=== PATIENT | male | born 1955 | race Caucasian/White ===

== ENCOUNTER 2024-02-04 13:34 | Inpatient (IN) ==
[2024-02-04 13:52] LABS: ABS Basophils 0.1 10^3/uL (0.0-0.1); ABS Eosinophils 0.3 10^3/uL (0.0-0.5); ABS Lymphocytes 1.8 10^3/uL (1.0-4.8); ABS Monocytes 0.8 10^3/uL (0.0-1.1); ABS Neutrophils 8.3 10^3/uL (1.5-7.6); ABS Nucleated RBC 0.01 10^3/ul; Eosinophil % 2.5 %; Hematocrit 46.2 % (38-53); Hemoglobin 15.4 g/dL (13.2-16.3); Mean Corpuscular Hemoglobin 29.5 pg (27-33); Mean Corpuscular Hgb Conc 33.4 g/dL (31-36); Mean Corpuscular Volume 88.4 fL (80-97); Mean Platelet Volume 9.3 fL (7.5-11.2); Nucleated Red Blood Cells % 0.1 %/100WBC (0.0-0.8); Platelet Count 186 10^3/uL (150-450); Red Blood Count 5.23 10^6/uL (4.06-5.63); Red Cell Distribution Width 15.8 % (12-17); White Blood Count 11.2 10^3/uL (3.6-10.2)
[2024-02-04 14:01] LABS: INR 1.31 (0.85-1.14)
[2024-02-04 14:26] LABS: Albumin/Globulin Ratio 1.9 (1-3); Calcium 9.3 mg/dL (8.6-10.3); Creatinine, Serum 0.93 mg/dL (0.67-1.17); Globulin 2.1 g/dL (2-4); Potassium 4.3 mmol/L (3.5-5.0); Total Bilirubin 1.4 mg/dL (0.2-1.0); Total Protein 6.1 g/dL (6.4-8.9); eGFR CKD-EPI 88.3 (>60)
[2024-02-04] MEDS: Morphine 4 MG/ML VIAL (1 ml) IV ONE ×2 (15:16→18:34)
[2024-02-04] MEDS: Ondansetron 4 mg VIAL 2 MG/ML 2 ml VIAL IV ONE (15:26)
[2024-02-04 15:30] LABS: High Sensitivity Troponin 1 Hr 7 pg/mL (<20)
[2024-02-04] MEDS: Iohexol 350 (CONTRAST) 500 ML MDV IV ONE (16:50)
[2024-02-04] MEDS: Acetaminophen IV 1 GM/100ML 1,000 MG/100 ML BAG IV ONE (21:17)
[2024-02-04] MEDS: dilTIAZem 30 MG TAB PO ONE (21:35)
[2024-02-05] MEDS: Morphine 4 MG/ML VIAL (1 ml) IV ONE (01:41)
[2024-02-05] MEDS: Lactated Ringers 1000 ml BAG 1,000 ML IV ONE (05:28)
[2024-02-05 06:45] LABS: Urine Appearance Clear; Urine Bilirubin Negative (Negative); Urine Blood 3+ (Negative); Urine Glucose Negative (Negative); Urine Ketones Negative (Negative); Urine Nitrite Negative (Negative); Urine Protein 1+ (>=30 mg/dL) (Negative); Urine Specific Gravity >1.050 (1.002-1.030); Urine Urobilinogen Negative (Negative)
[2024-02-05 06:47] LABS: Urine Bacteria Absent /HPF (Absent); Urine Red Blood Cell 3+(>10/hpf) /HPF (0-Trace); Urine Squamous Epithelial Cell Present /HPF (Absent); Urine White Blood Cell Trace(0-5/hpf) /HPF (0-Trace)
[2024-02-05 06:51] LABS: Urine Color Amber
[2024-02-05] MEDS: Lactated Ringers 1000 ml BAG 1,000 ML IV SCH ×2 (09:33→11:07)
[2024-02-05] MEDS: dilTIAZem 30 MG TAB PO SCH (09:37)
[2024-02-05] MEDS: Morphine 2 MG/ML SYRINGE IV PRN (09:48)
[2024-02-05 13:31] LABS: ABS Basophils 0.1 10^3/uL (0.0-0.1); ABS Eosinophils 0.2 10^3/uL (0.0-0.5); ABS Lymphocytes 1.4 10^3/uL (1.0-4.8); ABS Neutrophils 7.9 10^3/uL (1.5-7.6); Eosinophil % 1.9 %; Hematocrit 43.6 % (38-53); Hemoglobin 14.7 g/dL (13.2-16.3); Lymphocyte % 12.9 %; Mean Corpuscular Hemoglobin 30.1 pg (27-33); Mean Corpuscular Hgb Conc 33.7 g/dL (31-36); Mean Corpuscular Volume 89.3 fL (80-97); Mean Platelet Volume 9.2 fL (7.5-11.2); Platelet Count 156 10^3/uL (150-450); Red Blood Count 4.88 10^6/uL (4.06-5.63); Red Cell Distribution Width 15.2 % (12-17); White Blood Count 10.5 10^3/uL (3.6-10.2)
[2024-02-05] MEDS: Senna TAB 8.6 mg TAB PO PRN (13:48)
[2024-02-05] MEDS: Polyethylene Glycol 3350 17 GM PACKET PO PRN (13:49)
[2024-02-05 14:13] LABS: Albumin 3.7 g/dL (3.2-5.2); Albumin/Globulin Ratio 1.9 (1-3); Calcium 9.1 mg/dL (8.6-10.3); Creatinine, Serum 0.98 mg/dL (0.67-1.17); Globulin 1.9 g/dL (2-4); Magnesium 1.8 mg/dL (1.9-2.7); Potassium 4.6 mmol/L (3.5-5.0); Total Bilirubin 2.1 mg/dL (0.2-1.0); Total Protein 5.6 g/dL (6.4-8.9)
[2024-02-05] MEDS: Magnesium Sulfate 2 gm BAG 2 GM/50 ML BAG IVPB ONE (15:15)
[2024-02-06 06:01] LABS: Hematocrit 41.7 % (38-53); Mean Corpuscular Hemoglobin 29.7 pg (27-33); Mean Corpuscular Hgb Conc 33.5 g/dL (31-36); Mean Corpuscular Volume 88.6 fL (80-97); Mean Platelet Volume 9.3 fL (7.5-11.2); Platelet Count 148 10^3/uL (150-450); Red Blood Count 4.71 10^6/uL (4.06-5.63); Red Cell Distribution Width 15.4 % (12-17)
[2024-02-06 06:22] LABS: Albumin 3.5 g/dL (3.2-5.2); Albumin/Globulin Ratio 1.9 (1-3); Calcium 8.5 mg/dL (8.6-10.3); Creatinine, Serum 0.93 mg/dL (0.67-1.17); Globulin 1.8 g/dL (2-4); Total Bilirubin 1.7 mg/dL (0.2-1.0); Total Protein 5.3 g/dL (6.4-8.9); eGFR CKD-EPI 88.3 (>60)
[2024-02-06 15:37] VITALS: BP 109/71
== END 2024-02-06 16:12 | disposition home or self-care (01) | DRG 440 ==
LOC: ED 13:34 → EDHOLD 02-05 04:31 → SUATTDRO 02-05 04:31 → MEDTELE 02-05 10:39
PROVIDERS: ADMIT Internal Medicine; ATTEND Hospitalist

== ENCOUNTER 2024-02-19 07:07 | Observation (INO) ==
[2024-02-19] MEDS ORDERED: fentaNYL 100 mcg/2 ml 50 MCG/ML VIAL ONE (07:51)
[2024-02-19] MEDS ORDERED: Rocuronium 50 mg VIAL 10 mg/ml 5 ml VIAL (50 mg) ONE (07:51)
[2024-02-19] MEDS ORDERED: Midazolam 2 mg/2 ml VIAL 1 mg/ml 2 ml VIAL (2 mg) ONE (07:51)
[2024-02-19] MEDS ORDERED: Dexamethasone IV 4 MG/ML VIAL 1 ml VIAL ONE (07:55)
[2024-02-19] MEDS ORDERED: Ondansetron 4 mg VIAL 2 MG/ML 2 ml VIAL ONE ×2 (07:55→12:43)
[2024-02-19] MEDS ORDERED: Lidocaine 2% PF 5 ML VIAL ONE (07:55)
[2024-02-19] MEDS ORDERED: Propofol 10 MG/ML 20 ML BTL ONE (07:55)
[2024-02-19] MEDS ORDERED: ceFAZolin 2 GM PREMIX 2 GM/50 ML BAG ONE (07:56)
[2024-02-19] MEDS ORDERED: fentaNYL 100 mcg/2 ml 50 MCG/ML VIAL IV PRN (08:11)
[2024-02-19] MEDS ORDERED: Naloxone 0.4 mg VIAL 0.4 mg/ml 1 ml VIAL IV PRN (08:11)
[2024-02-19] MEDS ORDERED: NS 0.45% 1000 ml BAG 1,000 ML IV SCH (09:00)
[2024-02-19] MEDS ORDERED: Bupivacaine 0.25% EPI 200,000 30 ML SDV ONE (09:17)
[2024-02-19] MEDS ORDERED: ceFAZolin 1 GM in Dextrose 1 GM/50 ML BAG ONE (09:30)
[2024-02-19] MEDS ORDERED: Phenylephrine IV 10 MG/ML 1 ml VIAL ONE (09:52)
[2024-02-19] MEDS ORDERED: Esmolol 10 MG/ML 10 ML (100 mg) IV ONE (10:17)
[2024-02-19] MEDS ORDERED: Remifentanil 2 MG VIAL ONE (10:25)
[2024-02-19] MEDS ORDERED: Acetaminophen IV 1 GM/100ML 1,000 MG/100 ML BAG IV ONE (12:23)
[2024-02-19] MEDS: Acetaminophen IV 1 GM/100ML 1,000 MG/100 ML BAG IV ONE (12:24)
[2024-02-19] MEDS: Ondansetron 4 mg VIAL 2 MG/ML 2 ml VIAL IV PRN (12:45)
[2024-02-19] MEDS ORDERED: Metoclopramide 5 MG/ML VIAL (10 mg) ONE (12:47)
[2024-02-19] MEDS: Metoclopramide 5 MG/ML VIAL (10 mg) IV PRN (12:50)
[2024-02-19] MEDS ORDERED: Ondansetron 4 mg VIAL 2 MG/ML 2 ml VIAL IV PRN (14:35)
[2024-02-19] MEDS ORDERED: Morphine 4 MG/ML VIAL (1 ml) IV PRN (14:46)
[2024-02-19 14:58] LABS: Rapid COVID-19 Molecular Undetected (Undetected)
[2024-02-19] MEDS ORDERED: Metoprolol Tartrate 5 mg VIAL 5 ml VIAL (1 mg/ml) IV PRN (15:47)
[2024-02-19] MEDS: Buffered Lidocaine 1% SYRIN 1 ml INTRADERM ONE (16:49)
[2024-02-19] MEDS: Scopolamine 1 mg/72hr PATCH TRANSDERM ONE (16:49)
[2024-02-19] MEDS: ceFAZolin *3* GM in NS PREMIX 3 GM/100 ML BAG IV SCH ×2 (17:01→17:50)
[2024-02-19] MEDS: Lactated Ringers 1000 ml BAG 1,000 ML IV SCH ×2 (17:02→17:07)
[2024-02-19 17:18] LABS: Calcium 9.4 mg/dL (8.6-10.3); Creatinine, Serum 0.97 mg/dL (0.67-1.17); Magnesium 1.7 mg/dL (1.9-2.7); Potassium 4.5 mmol/L (3.5-5.0)
[2024-02-19 17:34] LABS: TSH Ultra Thyroid Stim Horm 2.05 mcIU/mL (0.34-5.60)
[2024-02-19] MEDS: Magnesium Sulfate 2 gm BAG 2 GM/50 ML BAG IVPB ONE (19:46)
[2024-02-19] MEDS: dilTIAZem 30 MG TAB PO SCH (22:02)
[2024-02-19] MEDS: Magnesium Sulfate IV 1GM/100ML 1 GM/100 ML BAG IV ONE (22:02)
[2024-02-20] MEDS: HYDROcodone/ACETAMIN 5/325 mg TAB PO PRN (02:37)
[2024-02-20 06:35] LABS: ABS Basophils 0.1 10^3/uL (0.0-0.1); ABS Lymphocytes 0.9 10^3/uL (1.0-4.8); ABS Monocytes 1.1 10^3/uL (0.0-1.1); ABS Neutrophils 13.4 10^3/uL (1.5-7.6); Hematocrit 42.2 % (38-53); Hemoglobin 14.3 g/dL (13.2-16.3); Lymphocyte % 5.6 %; Mean Corpuscular Hemoglobin 30.1 pg (27-33); Mean Corpuscular Hgb Conc 33.8 g/dL (31-36); Mean Platelet Volume 9.8 fL (7.5-11.2); Platelet Count 166 10^3/uL (150-450); Red Blood Count 4.74 10^6/uL (4.06-5.63); Red Cell Distribution Width 15.5 % (12-17); White Blood Count 15.5 10^3/uL (3.6-10.2)
[2024-02-20 06:51] LABS: Calcium 8.7 mg/dL (8.6-10.3); Creatinine, Serum 1.06 mg/dL (0.67-1.17); Magnesium 2.2 mg/dL (1.9-2.7); Potassium 4.7 mmol/L (3.5-5.0); eGFR CKD-EPI 75.5 (>60)
[2024-02-20] MEDS: CMC:Fenofibrate 145 mg TAB (NF) PO SCH (11:32)
[2024-02-20 13:59] VITALS: BP 109/75
== END 2024-02-20 14:40 | disposition home or self-care (01) ==
LOC: OR 07:07 → MEDTELE 07:07
PROVIDERS: ADMIT Surgery; ATTEND Surgery